=== PATIENT | female | born 1940 | race Caucasian/White ===

== ENCOUNTER 2019-03-17 05:01 | Inpatient (IN) ==
[2019-02-27 14:14] LABS: Basophils # 0.1 10*3/uL (0.0-0.2); Basophils % 0.5 % (0.0-0.8); Eosinophils # 0.1 10*3/uL (0.0-0.87); Eosinophils % 0.8 % (0.00-10.9); Hematocrit 42.2 VOL% (35.7-47.0); Hemoglobin 13.8 GM/DL (12.0-16.0); Immature Granulocytes % 0.4 %; Immature Granulocytes Absolute 0.04 #; Lymphocytes # 2.8 10*3/uL (1.4-4.0); Lymphocytes % 27.4 % (21.3-54.2); Mean Corpuscular HGB Conc 32.7 GM/DL (32-36); Mean Corpuscular Volume 95.7 FL (87-102); Mean Platelet Volume 8.8 FL (9.6-12.0); Monocytes % 7.5 % (1.7-12.7); Neutrophils % 63.4 % (38.7-73.9); Platelet Count 239 T/CUMM (130-400); Red Blood Count 4.41 MC/CUMM (3.8-5.5); Red Cell Distribution Width 12.5 % (9.3-17.3); White Blood Count 10.2 T/CUMM (4-12)
[2019-02-27 14:20] LABS: Apearance,Urine CLEAR (Clear); Bilirubin,Urine Negative (Negative); Blood, Urine Negative (Negative); Glucose,Urine (UA) Negative (Negative); Ketones,Urine Negative (Negative); Nitrite,Urine Negative (Negative); Protein,Urine Negative; RBC,Urine 1 /HPF (0-4); Squamous Epithelial Cell,Urine Occasional /HPF (0-10); Urine Color Straw (Yellow); Urine Specific Gravity 1.006 (1.001-1.035); Urine Urobilinogen < 2.0 EU/DL (0.2-1.0); WBC,Urine 1 /HPF (0-6)
[2019-02-27 14:31] LABS: INR 0.9; Partial Thromboplastin Time 26.9 SECS (0-40)
[2019-02-27 14:34] LABS: Albumin 4.1 G/DL (3.4-5.0); Bilirubin,Total 0.5 MG/DL (0.2-1.0); Calcium 10.1 MG/DL (8.5-10.1); Total Protein 7.3 G/DL (6.4-8.3)
[2019-03-17] MEDS ORDERED: ceFAZolin 1,000 MG VIAL ONE (05:47)
[2019-03-17] MEDS ORDERED: VANCOMYCIN 1,000 MG VIAL ONE (05:47)
[2019-03-17] MEDS ORDERED: ceFAZolin 1,000 MG in SYRINGE 1 EACH IV ONE (06:00)
[2019-03-17] MEDS ORDERED: VANCOMYCIN INJ 1,000 MG in SODIUM CHLORIDE 0.9% 250 ML IV ONE (06:00)
[2019-03-17] MEDS ORDERED: LACTATED RINGERS 1,000 ML IV SCH (06:30)
[2019-03-17] MEDS ORDERED: DIAZEPAM 5 MG TABLET PO ONE (07:20)
[2019-03-17] MEDS ORDERED: FAMOTIDINE 20 MG TABLET PO ONE (07:21)
[2019-03-17] MEDS ORDERED: DIAZEPAM 5 MG TABLET ONE (07:49)
[2019-03-17] MEDS ORDERED: FAMOTIDINE 20 MG TABLET ONE (07:49)
[2019-03-17] MEDS ORDERED: BUPIVACAINE 0.5% 50 ML VIAL ONE (09:32)
[2019-03-17] MEDS ORDERED: EPINEPHrine 1 MG/ML VIAL ONE (09:33)
[2019-03-17] MEDS ORDERED: DEXAMETHASONE 4 MG/1 ML VIAL ONE ×2 (09:33→12:23)
[2019-03-17] MEDS ORDERED: LIDOCAINE 1% 5 ML VIAL ONE (09:33)
[2019-03-17] MEDS ORDERED: BACITRACIN OINT 0.9 GM PACK TOP ONE (11:33)
[2019-03-17] MEDS ORDERED: ONDANSETRON 4 MG/2 ML VIAL IV PRN ×2 (12:05→12:40)
[2019-03-17] MEDS ORDERED: ZALEPLON 5 MG CAPSULE PO PRN (12:05)
[2019-03-17] MEDS ORDERED: MORPHINE 4 MG/1 ML VIAL IV PRN ×2 (12:05)
[2019-03-17] MEDS ORDERED: oxyCODONE IR 5 MG TABLET PO PRN (12:05)
[2019-03-17] MEDS ORDERED: diphenhydrAMINE CAP 25 MG CAPSULE PO PRN (12:05)
[2019-03-17] MEDS ORDERED: SEVOFLURANE 1 UNIT/15 MINUTE INH ONE (12:23)
[2019-03-17] MEDS ORDERED: fentaNYL 100 MCG/2 ML VIAL ONE (12:23)
[2019-03-17] MEDS ORDERED: ESMOLOL 100 MG/10 ML VIAL IV ONE (12:23)
[2019-03-17] MEDS ORDERED: PROPOFOL 200 MG/20 ML VIAL IV ONE (12:23)
[2019-03-17] MEDS ORDERED: TRANEXAMIC ACID 1,000 MG/10 ML VIAL ONE (12:23)
[2019-03-17] MEDS ORDERED: GLYCOPYRROLATE 0.4 MG/2 ML VIAL ONE (12:24)
[2019-03-17] MEDS ORDERED: PHENYLEPHRINE 1 MG/10 ML SYRINGE IV ONE (12:24)
[2019-03-17] MEDS ORDERED: ROCURONIUM 100 MG/10 ML VIAL IV ONE (12:24)
[2019-03-17] MEDS ORDERED: ETOMIDATE 40 MG/20 ML VIAL IV ONE (12:24)
[2019-03-17] MEDS ORDERED: NEOSTIGMINE 10 MG/10 ML VIAL ONE (12:24)
[2019-03-17] MEDS ORDERED: LACTATED RINGERS 1,000 ML IV ONE (12:24)
[2019-03-17 12:26] LABS: Apearance,Urine CLEAR (Clear); Bilirubin,Urine Negative (Negative); Blood, Urine Negative (Negative); Glucose,Urine (UA) Negative (Negative); Ketones,Urine Negative (Negative); Mucus,Urine Occasional /LPF (Occasional); Nitrite,Urine Negative (Negative); Protein,Urine Negative; RBC,Urine 1 /HPF (0-4); Squamous Epithelial Cell,Urine Few /HPF (0-10); Urine Color Yellow (Yellow); Urine Specific Gravity 1.015 (1.001-1.035); Urine Urobilinogen < 2.0 EU/DL (0.2-1.0); WBC,Urine 1 /HPF (0-6)
[2019-03-17] MEDS ORDERED: HYDROmorphone 2 MG/1 ML VIAL ONE (12:34)
[2019-03-17] MEDS: HYDROmorphone 2 MG/1 ML VIAL IV PRN ×2 (12:35→13:05)
[2019-03-17] MEDS: KETOROLAC 15 MG/1 ML VIAL IV SCH ×2 (14:03→18:20)
[2019-03-17] MEDS: LACTATED RINGERS 1,000 ML IV SCH ×2 (15:39→20:42)
[2019-03-17] MEDS: ceFAZolin 1,000 MG in SYRINGE 1 EACH IV SCH (15:39)
[2019-03-17] MEDS: ACETAMINOPHEN 500 MG TABLET PO SCH ×2 (17:47→22:18)
[2019-03-17] MEDS: SIMVASTATIN 10 MG TABLET PO SCH (20:41)
[2019-03-17] MEDS: DOCUSATE SODIUM 100 MG CAPSULE PO SCH (20:41)
[2019-03-17] MEDS: CHOLECALCIFEROL 5,000 UNIT TABLET PO SCH (20:41)
[2019-03-18] MEDS: KETOROLAC 15 MG/1 ML VIAL IV SCH ×2 (00:57→05:52)
[2019-03-18] MEDS: ceFAZolin 1,000 MG in SYRINGE 1 EACH IV SCH (00:58)
[2019-03-18] MEDS: LACTATED RINGERS 1,000 ML IV SCH ×2 (01:08→04:30)
[2019-03-18] MEDS: ACETAMINOPHEN 500 MG TABLET PO SCH ×2 (04:30→09:10)
[2019-03-18 05:37] LABS: Basophils % 0.2 % (0.0-0.8); Hematocrit 34.5 VOL% (35.7-47.0); Hemoglobin 11.3 GM/DL (12.0-16.0); Immature Granulocytes % 0.4 %; Immature Granulocytes Absolute 0.05 #; Lymphocytes # 1.5 10*3/uL (1.4-4.0); Lymphocytes % 12.2 % (21.3-54.2); Mean Corpuscular HGB Conc 32.8 GM/DL (32-36); Mean Corpuscular Volume 96.6 FL (87-102); Mean Platelet Volume 9.3 FL (9.6-12.0); Monocytes % 8.9 % (1.7-12.7); Neutrophils % 78.3 % (38.7-73.9); Platelet Count 203 T/CUMM (130-400); Red Blood Count 3.57 MC/CUMM (3.8-5.5); Red Cell Distribution Width 12.6 % (9.3-17.3); White Blood Count 12.1 T/CUMM (4-12)
[2019-03-18] MEDS: FONDAPARINUX 2.5 MG/0.5 ML SYRINGE SUBCUT SCH (05:52)
[2019-03-18 05:53] LABS: Calcium 8.7 MG/DL (8.5-10.1); Osmolality,Calculated 285.3 MOS/KG (273-304)
[2019-03-18] MEDS: DOCUSATE SODIUM 100 MG CAPSULE PO SCH ×2 (08:15→20:44)
[2019-03-18] MEDS: oxyCODONE IR 5 MG TABLET PO PRN ×2 (09:09→17:00)
[2019-03-18] MEDS: CHOLECALCIFEROL 5,000 UNIT TABLET PO SCH (20:44)
[2019-03-18] MEDS: SIMVASTATIN 10 MG TABLET PO SCH (20:44)
[2019-03-18] MEDS: LISINOPRIL 5 MG TABLET PO SCH (20:45)
[2019-03-19] MEDS: FONDAPARINUX 2.5 MG/0.5 ML SYRINGE SUBCUT SCH (05:27)
[2019-03-19 05:45] LABS: Basophils % 0.2 % (0.0-0.8); Eosinophils % 0.2 % (0.00-10.9); Hematocrit 32.4 VOL% (35.7-47.0); Hemoglobin 10.6 GM/DL (12.0-16.0); Immature Granulocytes % 0.3 %; Immature Granulocytes Absolute 0.04 #; Lymphocytes # 2.3 10*3/uL (1.4-4.0); Lymphocytes % 18.1 % (21.3-54.2); Mean Corpuscular HGB Conc 32.7 GM/DL (32-36); Mean Platelet Volume 9.3 FL (9.6-12.0); Monocytes % 9.7 % (1.7-12.7); Neutrophils % 71.5 % (38.7-73.9); Platelet Count 184 T/CUMM (130-400); Red Blood Count 3.34 MC/CUMM (3.8-5.5); Red Cell Distribution Width 12.9 % (9.3-17.3); White Blood Count 12.7 T/CUMM (4-12)
[2019-03-19 06:20] LABS: Calcium 9.1 MG/DL (8.5-10.1)
[2019-03-19] MEDS: DOCUSATE SODIUM 100 MG CAPSULE PO SCH ×2 (09:45→20:58)
[2019-03-19] MEDS: MAGNESIUM HYDROXIDE SUSP 30 ML UDCUP PO PRN ×2 (09:45→20:58)
[2019-03-19] MEDS: CHOLECALCIFEROL 5,000 UNIT TABLET PO SCH (20:57)
[2019-03-19] MEDS: SIMVASTATIN 10 MG TABLET PO SCH (20:58)
[2019-03-19] MEDS: LISINOPRIL 5 MG TABLET PO SCH (20:58)
[2019-03-20 05:42] LABS: Basophils % 0.3 % (0.0-0.8); Eosinophils # 0.1 10*3/uL (0.0-0.87); Eosinophils % 0.5 % (0.00-10.9); Hematocrit 34.2 VOL% (35.7-47.0); Hemoglobin 10.9 GM/DL (12.0-16.0); Immature Granulocytes % 0.7 %; Immature Granulocytes Absolute 0.08 #; Lymphocytes # 2.3 10*3/uL (1.4-4.0); Lymphocytes % 20.1 % (21.3-54.2); Mean Corpuscular HGB Conc 31.9 GM/DL (32-36); Mean Corpuscular Volume 97.2 FL (87-102); Mean Platelet Volume 9.4 FL (9.6-12.0); Monocytes % 11.5 % (1.7-12.7); Neutrophils % 66.9 % (38.7-73.9); Platelet Count 185 T/CUMM (130-400); Red Blood Count 3.52 MC/CUMM (3.8-5.5); Red Cell Distribution Width 12.7 % (9.3-17.3); White Blood Count 11.4 T/CUMM (4-12)
[2019-03-20] MEDS: FONDAPARINUX 2.5 MG/0.5 ML SYRINGE SUBCUT SCH (06:03)
[2019-03-20] MEDS: oxyCODONE IR 5 MG TABLET PO PRN (07:40)
[2019-03-20] MEDS ORDERED: LACTULOSE 20 GM/30 ML UDCUP PO PRN (09:40)
[2019-03-20] MEDS: DOCUSATE SODIUM 100 MG CAPSULE PO SCH (09:44)
[2019-03-20 11:35] VITALS: BP 127/65
== END 2019-03-20 13:30 | disposition swing bed (61) | DRG 470 ==
LOC: N.SDSINP 05:01 → N.3E 13:37
PROVIDERS: ADMIT Orthopaedic Surgery; ATTEND Orthopaedic Surgery

== ENCOUNTER 2021-02-15 04:57 | Inpatient (IN) ==
[2021-02-08 12:14] LABS: Bacteria,Urine Occasional /HPF (Few); Bilirubin,Urine Negative (Negative); Blood, Urine Negative (Negative); Glucose,Urine (UA) Negative (Negative); Ketones,Urine Negative (Negative); Mucus,Urine Occasional /LPF (Occasional); Nitrite,Urine Negative (Negative); Protein,Urine Negative; RBC,Urine 1 /HPF (0-4); Squamous Epithelial Cell,Urine Moderate /HPF (0-10); Urine Appearance Slightly Hazy (Clear); Urine Color Yellow (Yellow); Urine Specific Gravity 1.019 (1.001-1.035)
[2021-02-08 12:18] LABS: Basophils # 0.1 10*3/uL (0.0-0.2); Basophils % 0.6 % (0.0-0.8); Eosinophils % 0.4 % (0.00-10.9); Hematocrit 44.7 VOL% (35.7-47.0); Immature Granulocytes % 0.2 %; Immature Granulocytes Absolute 0.02 #; Lymphocytes # 3.3 10*3/uL (1.4-4.0); Lymphocytes % 36.7 % (21.3-54.2); Mean Corpuscular HGB Conc 33.6 GM/DL (32-36); Mean Corpuscular Volume 95.1 FL (87-102); Mean Platelet Volume 9.4 FL (9.6-12.0); Monocytes % 9.5 % (1.7-12.7); Neutrophils % 52.6 % (38.7-73.9); Platelet Count 252 T/CUMM (130-400); Red Cell Distribution Width 12.9 % (9.3-17.3); White Blood Count 8.9 T/CUMM (4-12)
[2021-02-08 12:25] LABS: PT Patient Result 10.7 SECS (10.5-12.0); Partial Thromboplastin Time 27.1 SECS (23.9-33.8)
[2021-02-08 12:36] LABS: Albumin 4.3 G/DL (3.4-5.0); Bilirubin,Total 1.1 MG/DL (0.2-1.0); Calcium 10.5 MG/DL (8.5-10.1); Osmolality,Calculated 283.3 MOS/KG (273-304); Potassium 4.1 MMOL/L (3.5-5.1); Total Protein 7.6 G/DL (6.4-8.2)
[2021-02-15] MEDS ORDERED: VANCOMYCIN INJ 1,000 MG in SODIUM CHLORIDE 0.9% 250 ML IV ONE (06:00)
[2021-02-15] MEDS ORDERED: LACTATED RINGERS 1,000 ML IV SCH (07:30)
[2021-02-15] MEDS ORDERED: BUPIVACAINE MPF 0.25% 30 ML VIAL ONE (07:51)
[2021-02-15] MEDS ORDERED: DEXAMETHASONE 4 MG/1 ML VIAL ONE ×2 (07:52→08:44)
[2021-02-15] MEDS ORDERED: fentaNYL 100 MCG/2 ML VIAL ONE ×2 (07:52→08:03)
[2021-02-15] MEDS ORDERED: DEXMEDETOMIDINE 200 MCG/2 ML VIAL ONE (07:52)
[2021-02-15] MEDS ORDERED: propofoL 200 MG/20 ML VIAL IV ONE (08:03)
[2021-02-15] MEDS ORDERED: ROCURONIUM 50 MG/5 ML VIAL IV ONE (08:03)
[2021-02-15] MEDS ORDERED: ETOMIDATE 40 MG/20 ML VIAL IV ONE (08:03)
[2021-02-15] MEDS ORDERED: LIDOCAINE 2% 5 ML VIAL ONE (08:03)
[2021-02-15] MEDS ORDERED: SEVOFLURANE 1 UNIT/15 MINUTE INH ONE ×7 (08:44→09:58)
[2021-02-15] MEDS ORDERED: ONDANSETRON 4 MG/2 ML VIAL ONE (08:44)
[2021-02-15] MEDS ORDERED: ACETAMINOPHEN INJ 1,000 MG/100 ML VIAL IV ONE (08:48)
[2021-02-15] MEDS ORDERED: ePHEDrine 50 MG/ML VIAL ONE (08:49)
[2021-02-15] MEDS ORDERED: ESMOLOL 100 MG/10 ML VIAL IV ONE (09:01)
[2021-02-15 09:10] LABS: Bilirubin,Urine Negative (Negative); Blood, Urine Negative (Negative); Glucose,Urine (UA) Negative (Negative); Ketones,Urine Negative (Negative); Mucus,Urine Occasional /LPF (Occasional); Nitrite,Urine Negative (Negative); Protein,Urine Negative; RBC,Urine <1 /HPF (0-4); Squamous Epithelial Cell,Urine Occasional /HPF (0-10); Urine Appearance CLEAR (Clear); Urine Color Yellow (Yellow); Urine Specific Gravity 1.013 (1.001-1.035); Urine Urobilinogen < 2.0 EU/DL (0.2-1.0)
[2021-02-15] MEDS ORDERED: SODIUM CHLORIDE 0.9% 100 ML IV ONE (09:15)
[2021-02-15] MEDS ORDERED: TRANEXAMIC ACID 1,000 MG/10 ML VIAL ONE (09:15)
[2021-02-15] MEDS ORDERED: METOPROLOL TARTRATE 5 MG/5 ML VIAL IV ONE (09:23)
[2021-02-15] MEDS ORDERED: SUGAMMADEX 200 MG/2 ML VIAL IV ONE (09:35)
[2021-02-15] MEDS ORDERED: diphenhydrAMINE CAP 25 MG CAPSULE PO PRN (09:56)
[2021-02-15] MEDS ORDERED: MAGNESIUM HYDROXIDE SUSP 30 ML UDCUP PO PRN (09:56)
[2021-02-15] MEDS ORDERED: MORPHINE 4 MG/1 ML VIAL IV PRN ×2 (09:56)
[2021-02-15] MEDS ORDERED: ONDANSETRON 4 MG/2 ML VIAL IV PRN ×2 (09:56→10:21)
[2021-02-15] MEDS ORDERED: ZALEPLON 5 MG CAPSULE PO PRN (09:56)
[2021-02-15] MEDS: HYDROmorphone 2 MG/1 ML VIAL IV PRN ×2 (10:25→10:45)
[2021-02-15] MEDS: KETOROLAC 15 MG/1 ML VIAL IV SCH ×3 (12:27→22:57)
[2021-02-15] MEDS: LACTATED RINGERS 1,000 ML IV SCH ×2 (12:28→22:58)
[2021-02-15] MEDS: DOCUSATE SODIUM 100 MG CAPSULE PO SCH (21:26)
[2021-02-15] MEDS: METOPROLOL SUCCINATE XL 25 MG TABLET PO SCH (21:26)
[2021-02-15] MEDS: MONTELUKAST 10 MG TABLET PO SCH (21:26)
[2021-02-15] MEDS: CHOLECALCIFEROL 5,000 UNIT TABLET PO SCH (21:26)
[2021-02-16] MEDS: KETOROLAC 15 MG/1 ML VIAL IV SCH (04:04)
[2021-02-16] MEDS: FONDAPARINUX 2.5 MG/0.5 ML SYRINGE SUBCUT SCH (05:09)
[2021-02-16 05:50] LABS: Basophils % 0.2 % (0.0-0.8); Hematocrit 34.3 VOL% (35.7-47.0); Hemoglobin 11.5 GM/DL (12.0-16.0); Immature Granulocytes % 0.4 %; Immature Granulocytes Absolute 0.05 #; Lymphocytes # 1.7 10*3/uL (1.4-4.0); Lymphocytes % 14.3 % (21.3-54.2); Mean Corpuscular HGB Conc 33.5 GM/DL (32-36); Mean Corpuscular Volume 97.4 FL (87-102); Mean Platelet Volume 9.4 FL (9.6-12.0); Monocytes % 9.6 % (1.7-12.7); Neutrophils % 75.5 % (38.7-73.9); Platelet Count 198 T/CUMM (130-400); Red Blood Count 3.52 MC/CUMM (3.8-5.5); Red Cell Distribution Width 12.7 % (9.3-17.3); White Blood Count 11.5 T/CUMM (4-12)
[2021-02-16 06:03] LABS: Calcium 8.8 MG/DL (8.5-10.1); Osmolality,Calculated 286.1 MOS/KG (273-304); Potassium 4.7 MMOL/L (3.5-5.1)
[2021-02-16] MEDS: DOCUSATE SODIUM 100 MG CAPSULE PO SCH ×2 (08:29→20:28)
[2021-02-16] MEDS ORDERED: hydrALAZINE 20 MG/1 ML VIAL IV PRN (13:24)
[2021-02-16] MEDS: CHOLECALCIFEROL 5,000 UNIT TABLET PO SCH (20:28)
[2021-02-16] MEDS: MONTELUKAST 10 MG TABLET PO SCH (20:29)
[2021-02-16] MEDS: METOPROLOL SUCCINATE XL 25 MG TABLET PO SCH (20:29)
[2021-02-17 05:20] LABS: Basophils % 0.2 % (0.0-0.8); Eosinophils # 0.1 10*3/uL (0.0-0.87); Eosinophils % 0.7 % (0.00-10.9); Immature Granulocytes % 0.6 %; Immature Granulocytes Absolute 0.07 #; Lymphocytes # 2.4 10*3/uL (1.4-4.0); Lymphocytes % 19.8 % (21.3-54.2); Mean Corpuscular HGB Conc 32.4 GM/DL (32-36); Mean Corpuscular Volume 98.6 FL (87-102); Mean Platelet Volume 9.2 FL (9.6-12.0); Monocytes % 10.6 % (1.7-12.7); Neutrophils % 68.1 % (38.7-73.9); Platelet Count 173 T/CUMM (130-400); Red Blood Count 3.45 MC/CUMM (3.8-5.5); White Blood Count 12.1 T/CUMM (4-12)
[2021-02-17] MEDS: FONDAPARINUX 2.5 MG/0.5 ML SYRINGE SUBCUT SCH (05:26)
[2021-02-17] MEDS: DOCUSATE SODIUM 100 MG CAPSULE PO SCH ×2 (09:11→21:08)
[2021-02-17] MEDS: CHOLECALCIFEROL 5,000 UNIT TABLET PO SCH (21:08)
[2021-02-17] MEDS: MONTELUKAST 10 MG TABLET PO SCH (21:08)
[2021-02-17] MEDS: METOPROLOL SUCCINATE XL 25 MG TABLET PO SCH (21:09)
[2021-02-18] MEDS: FONDAPARINUX 2.5 MG/0.5 ML SYRINGE SUBCUT SCH (05:03)
[2021-02-18] MEDS: DOCUSATE SODIUM 100 MG CAPSULE PO SCH (09:16)
[2021-02-18 11:04] VITALS: BP 112/89
== END 2021-02-18 11:10 | disposition swing bed (61) | DRG 470 ==
LOC: N.OR 04:57 → N.SDSINP 05:01 → N.3E 11:11
PROVIDERS: ADMIT Orthopaedic Surgery; ATTEND Orthopaedic Surgery